=== PATIENT | female | born 1990 | race Caucasian/White ===

== ENCOUNTER 2016-12-27 16:49 | Emergency (ER) | payer OTHER ==
[2016-12-27] MEDS ORDERED: Bupivacaine 0.5% 10 ML VIAL ONE (17:13)
== END 2016-12-27 18:08 | disposition home or self-care (01) ==
LOC: ERS 16:49
DX: L60.0 Ingrowing nail (principal); E11.9 Type 2 diabetes mellitus without complications
CPT/HCPCS: 11750; J3490